=== PATIENT | male | born 1990 | race Hispanic/Latino ===

== ENCOUNTER 2017-06-26 14:57 | Emergency (ER) | payer MEDICAID | END 2017-06-26 15:28 | disposition home or self-care (01) | LOC: EDH 14:57 | DX: S71.032A Puncture wound without foreign body, left hip, initial encounter (principal); Z72.0 Tobacco use; W45.0XXA Nail entering through skin, initial encounter; Y93.89 Activity, other specified; Y92.89 Other specified places as the place of occurrence of the external cause; Y99.8 Other external cause status | CPT/HCPCS: 73502 ==

== ENCOUNTER 2018-02-05 19:42 | Emergency (ER) | payer MEDICAID ==
[2018-02-05] MEDS ORDERED: KETOROLAC TROMETHAMINE 30MG/ML ONE (20:39)
== END 2018-02-05 21:05 | disposition home or self-care (01) ==
LOC: EDH 19:42
DX: S92.321A Displaced fracture of second metatarsal bone, right foot, initial encounter for closed fracture (principal); S92.331A Displaced fracture of third metatarsal bone, right foot, initial encounter for closed fracture; S92.341A Displaced fracture of fourth metatarsal bone, right foot, initial encounter for closed fracture; Z72.0 Tobacco use; W23.0XXA Caught, crushed, jammed, or pinched between moving objects, initial encounter; Y93.89 Activity, other specified; Y92.098 Other place in other non-institutional residence as the place of occurrence of the external cause; Y99.8 Other external cause status
CPT/HCPCS: 29515; 73630; 96372; 99283; J1885

== ENCOUNTER 2018-12-10 13:32 | Emergency (ER) | payer MEDICAID ==
[2018-12-10] MEDS ORDERED: TETRACAINE HCL 0.5% 4 ML OPHTH SOLN ONE (13:56)
[2018-12-10] MEDS ORDERED: NA BORATE/BORIC AC/H2O/NACL 120 ML OPHTH IRRIG SOLN ONE (13:56)
[2018-12-10] MEDS ORDERED: FLUORESCEIN SODIUM 1 STRIP STRIP ONE (13:56)
[2018-12-10] MEDS ORDERED: GENTAMICIN SULFATE 0.3% 5ML DROPS ONE (14:09)
[2018-12-10] MEDS ORDERED: IBUPROFEN 600 MG TABLET ONE (14:09)
== END 2018-12-10 14:34 | disposition home or self-care (01) ==
LOC: EDH 13:32
DX: T15.02XA Foreign body in cornea, left eye, initial encounter (principal); X58.XXXA Exposure to other specified factors, initial encounter; Y93.89 Activity, other specified; Y92.89 Other specified places as the place of occurrence of the external cause; Y99.8 Other external cause status